=== PATIENT | male | born 1990 | race Caucasian/White ===

== ENCOUNTER 2018-02-15 20:35 | Emergency (ER) | payer MEDICAID ==
[~2018-02-15] VITALS: Ht 175.3 cm; Wt 63.5 kg
[2018-02-15 20:39] VITALS: Ht 175.3 cm; Wt 63.5 kg
[2018-02-15 22:05] VITALS: BP 160/90
== END 2018-02-15 22:05 | disposition other institution (70) ==
LOC: ED 20:35
DX: F15.10 Other stimulant abuse, uncomplicated (principal)
CPT/HCPCS: J7030

== ENCOUNTER 2018-02-15 20:35 | Emergency (ER) | payer OTHER | END 2018-02-15 22:05 | disposition other institution (70) | LOC: ED 20:35 | DX: Z02.89 Encounter for other administrative examinations (principal) ==